=== PATIENT | male | born 1950 | race Caucasian/White ===

== ENCOUNTER → 2016-08-18 | Outpatient (REF) | payer BC ==
[2016-08-18 17:45] LABS: REASON FOR REVIEW COMPREHENSIVE REVIEW
[2016-08-18 18:45] LABS: PERCENT SATURATION 21.8 % (19.7-37.4)
== END ==
LOC: M LAB REF 16:40
PROVIDERS: ATTEND Internal Medicine Medical Oncology
DX: D72.819 Decreased white blood cell count, unspecified (principal); D69.6 Thrombocytopenia, unspecified

== ENCOUNTER → 2017-10-05 | Outpatient (REF) | payer MEDICARE | LOC: M LAB REF 12:50 | DX: D72.819 Decreased white blood cell count, unspecified (principal); D69.6 Thrombocytopenia, unspecified | CPT/HCPCS: 88300 ==

== ENCOUNTER → 2017-11-10 | Outpatient (REF) | payer MEDICARE | LOC: M LAB REF 14:00 | DX: D69.6 Thrombocytopenia, unspecified (principal); D72.819 Decreased white blood cell count, unspecified | CPT/HCPCS: 88300 ==

== ENCOUNTER → 2022-07-07 | Outpatient (CLI) | payer OTHER | LOC: M PAIN 13:00 | PROVIDERS: ATTEND Nurse Practitioner Family | DX: M51.16 Intervertebral disc disorders with radiculopathy, lumbar region (principal); G89.29 Other chronic pain; I10 Essential (primary) hypertension; Z88.5 Allergy status to narcotic agent; E66.01 Morbid (severe) obesity due to excess calories; Z68.43 Body mass index [BMI] 50.0-59.9, adult; Z79.82 Long term (current) use of aspirin; Z79.899 Other long term (current) drug therapy ==